=== PATIENT | male | born 1995 | race Caucasian/White ===

== ENCOUNTER → 2024-08-14 12:27 | Outpatient (CLI) | payer SELFPAY ==
[2024-08-14 13:46] LABS: Natera Collection Specimen Collected
== END ==
LOC: LAB 12:32
PROVIDERS: Referring Provider Student in an Organized Health Care Education/Training Program; Visit Provider Student in an Organized Health Care Education/Training Program
DX: Z31.440 Encounter of male for testing for genetic disease carrier status for procreative management (principal)
CPT/HCPCS: 36415